=== PATIENT | female | born 1945 | race Caucasian/White ===

== ENCOUNTER 2018-11-16 13:34 | Emergency (ER) | payer MEDICARE, OTHER ==
[2018-11-16] MEDS ORDERED: Meclizine TAB* 12.5 MG PO ONE (14:10)
[2018-11-16] MEDS ORDERED: Lidocaine 1%* 5 ML VIAL INJ ONE (14:10)
[2018-11-16] MEDS ORDERED: Tetan/Diph/Pertus SYR(Tdap)* 0.5 ML SYR(BOOSTRIX) use SYR IM ONE (14:10)
--- NOTE | 2018-11-16 14:10 | ED ---
Head Injury - HPI Summary HPI Summary: Patient is a 73-year-old female who presents emergency department for head injury that occurred around 8 AM this morning. Patient states she was leaving her house to go to work when she slipped on the snow and hit her posterior head on concrete. Patient denies loss of consciousness. She states she was able to get up off of the ground by herself. Associated symptoms of laceration to posterior scalp. Patient denies prior occurrence chest pain, shortness of breath, lightheadedness, dizziness. No recent illness. Patient complains of posterior head pain as well as low back pain. She denies numbness, tingling or weakness. She is not on anticoagulants. Patient also notes she has been nauseous and dizzy/feeling off balance since fall. Times are moderate in severity. Movement makes symptoms worse. Nothing makes symptoms better. - History Of Current Complaint Chief Complaint: EDHeadInjury Stated Complaint: FELL/HEAD INJURY Time Seen by Provider: 11/16/18 13:48 Hx Obtained From: Patient Pain Intensity: 7 - Allergies/Home Medications Allergies/Adverse Reactions: Allergies Allergy/AdvReac Type Severity Reaction Status Date / Time No Known Allergies Allergy Verified 11/16/18 13:41 PMH/Surg Hx/FS Hx/Imm Hx Previously Healthy: Yes Infectious Disease History: No Infectious Disease History: Denies: Traveled Outside the [place] in Last 30 Days - Family History Known Family History: Positive: Non-Contributory - Social History Occupation: Employed Full-time Lives: With Family Alcohol Use: None Substance Use Type: Reports: None Smoking Status (MU): Never Smoked Tobacco Review of Systems Eyes: Negative ENT: Negative Cardiovascular: Negative Negative: Palpitations, Chest Pain Respiratory: Negative Negative: Shortness Of Breath Positive: Nausea. Negative: Abdominal Pain, Vomiting Musculoskeletal: Negative Positive: Other - scalp laceration Positive: Headache. Negative: Weakness, Paresthesia, Numbness, Syncope All Other Systems Reviewed And Are Negative: Yes Physical Exam Triage Information Reviewed: Yes Vital Signs On Initial Exam: Initial Vitals Temp Pulse Resp BP Pulse Ox 99.1 F 96 15 139/71 98 11/16/18 13:39 11/16/18 13:39 11/16/18 13:39 11/16/18 13:39 11/16/18 13:39 Vital Signs Reviewed: Yes Appearance: Positive: Well-Appearing - Pt. sitting up in bed in NAD. Very talkative and pleasant. Answers questoins appropriately. present. Skin: Positive: Warm, Dry Head/Face: Positive: Other - 2cm full thickness laceration noted to posterior scalp without bleeding. Eyes: Positive: Normal, EOMI, ALISHA, Conjunctiva Clear Neck: Positive: Supple - No midline tenderness Respiratory/Lung Sounds: Positive: Clear to Auscultation, Breath Sounds Present Cardiovascular: Positive: Normal, RRR Abdomen Description: Positive: Nontender, Soft Musculoskeletal: Positive: Other - Low lumbar/sacral pain on palpation. 5/5 strength in bilateral UEs and LEs. Neurological: Positive: Normal, Sensory/Motor Intact, Alert, Oriented to Person Place, Time, CN Intact II-III Psychiatric: Positive: Affect/Mood Appropriate Procedures - Laceration/Wound Repair 1 Location: head Description: Linear Anesthesia: Local, 1.0% Length, Depth and Shape: 2 cm irregular. Betadine Prep?: No - hibiclens Laceration/Wound Explored: clean Closure: [place] #__ - 5 Layer Closure?: No Sterile Dressing Applied?: No Diagnostics - Vital Signs Vital Signs Temp Pulse Resp BP Pulse Ox 11/16/18 13:39 99.1 F 96 15 139/71 98 - Laboratory Lab Statement: Any lab studies that have been ordered have been reviewed, and results considered in the medical decision making process. Head Injury Course/Dx Course Of Treatment: Patient presenting for evaluation of head injury and scalp laceration after a mechanical fall. Patient has no neurological deficits on exam. She is complaining of vertigo. Brain CT and lumbar x-ray ordered. Shortly after my initial evaluation patient had an episode of dizziness and did vomit. She was given Zofran and meclizine. Brain CT is negative for acute findings, reading per radiology. Lumbar x-ray shows degenerative changes without acute fracture change, reading per radiology. Reexamination patient is resting comfortably. She states that her dizziness has improved. The scalp laceration was repaired. Tetanus was updated. Patient was given a dose of Toradol with good improvement of her back pain. Attempted to have patient sit up to ambulate when she became very dizzy and was unable to sit to the side of the bed complaining the room was spinning. Neuro examination was repeated and is negative without focal deficits. Case was discussed with Dr. Peterson states her to Be a symptom of concussion older population. Dr. Kristen reaves with patient being discharged home. Patient and has been comfortable with discharge home. Prescription for meclizine and Zofran given. Staple removal in 5-7 days. Patient to see her family doctor in one to 2 days for recheck. We'll return to the ER symptoms change or worsen. - Diagnoses Differential Diagnosis/HQI/PQRI: Cerebral Contusion, Concussion Without LOC, Contusion, Hematoma, Intracranial Bleed, Laceration, Skull Fracture Provider Diagnoses: Scalp laceration, Head injury, Vertigo, Concussion Discharge - Sign-Out/Discharge Documenting (check all that apply): Patient Departure Patient Received Moderate/Deep Sedation with Procedure: No - Discharge Plan Condition: Good Disposition: HOME Prescriptions: Meclizine HCl [Motion Sickness Relief] 25 mg PO TID #12 tablet Ondansetron TAB* [Zofran 4 MG Tab*] 4 mg PO Q6H PRN #12 tab PRN Reason: Nausea Patient Education Materials: Vertigo (ED), Concussion (ED), Head Injury (ED) Referrals: Jamal Barron MD [Primary Care Provider] - Additional Instructions: Schedule a follow up appointment with your PCP for tomorrow Staple removal in 5-7 days Ice head intermittently Tylenol or Motrin for pain as directed Take medications as directed Return to ER if symptoms change or worsen - Billing Disposition and Condition Condition: GOOD Disposition: Home
[2018-11-16] MEDS ORDERED: Ondansetron ODT TAB* 4 MG PO ONE (14:46)
[2018-11-16] MEDS ORDERED: Ondansetron ODT TAB* 4 MG ONE (14:49)
[2018-11-16] MEDS ORDERED: Ketorolac INJ* 30 MG/ML 1 ML VIAL IM ONE (15:24)
[2018-11-16 18:01] VITALS: BP 141/69
== END 2018-11-16 17:59 | disposition home or self-care (01) ==
LOC: ED 13:34
DX: S01.91XA Laceration without foreign body of unspecified part of head, initial encounter (principal); S06.0X9A Concussion with loss of consciousness of unspecified duration, initial encounter; W19.XXXA Unspecified fall, initial encounter; Y92.9 Unspecified place or not applicable; R11.0 Nausea; R51 Headache; R42 Dizziness and giddiness
CPT/HCPCS: 12001; 70450; 72110; 90471; 90715; 96372; 96374; 99284; A9270-GY; J1885